=== PATIENT | male | born 1955 | race Caucasian/White ===

== ENCOUNTER 2025-04-15 22:18 | Inpatient (IN) | payer OTHER ==
[~2025-04-15] VITALS: Ht 167.6 cm; Wt 47.3 kg
[2025-04-15 22:47] LABS: BASOPHILS ABSOLUTE AUTO 0.03 K/mm3 (0.00-0.23); BASOPHILS PERCENT AUTO 0 % (0-2); EOSINOPHILS ABSOLUTE AUTO 0.12 K/mm3 (0.00-0.68); EOSINOPHILS PERCENT AUTO 1 % (0-6); Hematocrit 50.2 % (37.0-53.0); Hemoglobin 16.5 g/dL (13.5-17.5); IMMATURE GRAN ABSOLUTE AUTO 0.06 K/mm3 (0.00-0.10); IMMATURE GRAN PERCENT AUTO 1 % (0-1); LYMPHOCYTES ABSOLUTE AUTO 1.20 K/mm3 (0.84-5.20); LYMPHOCYTES PERCENT AUTO 10 % (21-46); MONOCYTES ABSOLUTE AUTO 0.77 K/mm3 (0.16-1.47); MONOCYTES PERCENT AUTO 6 % (4-13); Mean Corpuscular HGB Conc 32.9 g/dL (31.5-36.5); Mean Corpuscular Volume 86 fL (80-100); NEUTROPHILS ABSOLUTE AUTO 9.94 K/mm3 (1.96-9.15); NEUTROPHILS PERCENT AUTO 82 % (41-73); NRBC ABSOLUTE 0.00 K/mm3 (0.00-0.02); NRBC Auto 0.0 /100 WBC (0.0-0.2); Platelet Count 252 K/mm3 (150-400); RDW Coefficient Variation 15.1 % (11.7-14.2); RDW Standard Deviation 47.9 fL (35.1-46.3)
[2025-04-15 23:07] LABS: Alanine Aminotransfer (ALT/SGP 20.0 U/L (12-78); Albumin, Blood 4.2 g/dL (3.4-5.0); Albumin/Globulin Ratio 1.2 (0.8-1.8); Anion Gap 12.0 mmol/L (3-11); Aspartate Aminotrans (AST/SGOT 18.0 U/L (12-37); Bilirubin, Total 0.6 mg/dL (0.1-1.0); Blood Urea Nitrogen 13.0 mg/dL (8-24); CO2, Blood 24.0 mmol/L (21-32); Calcium, Blood 9.8 mg/dL (8.5-10.1); Chloride, Blood 108.0 mmol/L (98-108); Creatinine, Blood 0.73 mg/dL (0.60-1.20); Globulin, Blood 3.4 g/dL (2.2-4.0); Glucose, Blood 131.0 mg/dL (70-99); Magnesium, Blood 2.5 mg/dL (1.6-2.4); Potassium, Blood 3.7 mmol/L (3.5-5.5); Sodium, Blood 140.0 mmol/L (136-145); Total Protein, Blood 7.6 g/dL (6.4-8.2)
[2025-04-15 23:54] LABS: pH Blood Venous 7.54 (7.34-7.37)
[2025-04-16] MEDS ORDERED: Lidocaine 2% Jelly Uro-Jet TOP ONE (01:45)
[2025-04-16 01:52] LABS: Source, Urine Clean Catch
[2025-04-16] MEDS ORDERED: LORazepam 2 MG/ML 1ML Injection ONE (01:52)
[2025-04-16 02:25] LABS: Bilirubin, Urine Neg (Neg); Glucose Qualitative, Urine Neg (Neg); Ketones, Urine 3+ (Neg); Leukocyte Esterase, Urine Neg (Neg); Protein, Urine 1+ (Neg); Specific Gravity, Urine 1.015 (1.003-1.022); Urobilinogen, Urine NORM (Normal)
[2025-04-16 02:32] LABS: Color, Urine Yellow (P-Yellow)
[2025-04-16] MEDS ORDERED: LORazepam 2 MG/ML 1ML Injection IV ONE (02:50)
[2025-04-16] MEDS ORDERED: FentaNYL Citrate 50 MCG/ML 2 ML Injection IV PRN (02:55)
[2025-04-16] MEDS ORDERED: Ondansetron HCl 2 MG / ML 2ML Vial IV PRN (02:55)
[2025-04-16] MEDS ORDERED: NS 1,000 ML IV SCH (02:55)
[2025-04-16] MEDS ORDERED: FLU VACC TS2025(65UP)/MF59C/PF 45 MCG/0.5 ML SYRINGE IM SCH (02:55)
[2025-04-16] MEDS ORDERED: Ipratropium/Albuterol SulF 2.5-0.5MG/3 ML Amp INH PRN (03:30)
[2025-04-16 03:48] VITALS: BP 143/81
[2025-04-16] MEDS ORDERED: Metoclopramide HCl 5MG / ML 2ML Vial IV PRN (04:25)
--- NOTE | 2025-04-16 04:29 | NUR ---
ER ADMIT NOTE: PATIENT ARRIVED TO FLOOR FROM ED AFTER RECEIVING REPORT FROM ER NURSE, ALICE. PT ACCOMPANIED BY , EDWINA. NS STARTED @ 100mL/hr x1L. NGT TO LOW-INTERMITTENT SUCTION IN RIGHT NARE; CONFIRMED c XR. GROGGY, BUT A&Ox4. PT AND ORIENTED TO ROOM AND CALL LIGHT SYSTEM. MED REC COMPLETED. DIET ORDER NPO; WILL NEED MINCED AND MOIST ONCE RETURNS TO PO INTAKE. ADMISSION ASSESSMENT COMPLETED. BED IN LOWEST POSITION. CALL LIGHT WITHIN REACH. ACUTE NEEDS MET. DR THOMPSON TO BEDSIDE. Hx COLLECTED FROM . GOING HOME; WILL BE BACK IN AM.
[2025-04-16 04:41] LABS: BASOPHILS ABSOLUTE AUTO 0.03 K/mm3 (0.00-0.23); BASOPHILS PERCENT AUTO 0 % (0-2); EOSINOPHILS ABSOLUTE AUTO 0.01 K/mm3 (0.00-0.68); EOSINOPHILS PERCENT AUTO 0 % (0-6); Hematocrit 48.5 % (37.0-53.0); Hemoglobin 16.3 g/dL (13.5-17.5); IMMATURE GRAN ABSOLUTE AUTO 0.06 K/mm3 (0.00-0.10); IMMATURE GRAN PERCENT AUTO 1 % (0-1); LYMPHOCYTES ABSOLUTE AUTO 0.78 K/mm3 (0.84-5.20); LYMPHOCYTES PERCENT AUTO 7 % (21-46); MONOCYTES ABSOLUTE AUTO 0.45 K/mm3 (0.16-1.47); MONOCYTES PERCENT AUTO 4 % (4-13); Mean Corpuscular HGB Conc 33.6 g/dL (31.5-36.5); Mean Corpuscular Volume 86 fL (80-100); NEUTROPHILS ABSOLUTE AUTO 10.06 K/mm3 (1.96-9.15); NEUTROPHILS PERCENT AUTO 88 % (41-73); NRBC ABSOLUTE 0.00 K/mm3 (0.00-0.02); NRBC Auto 0.0 /100 WBC (0.0-0.2); RDW Coefficient Variation 16.8 % (11.7-14.2); RDW Standard Deviation 47.8 fL (35.1-46.3)
[2025-04-16 05:47] LABS: Platelet Count 246 K/mm3 (150-400)
--- NOTE | 2025-04-16 06:24 | NUR ---
END OF SHIFT SUMMARY: A&Ox4, THOUGH GROGGY. PLEASANT AND COOPERATIVE WITH CARE. ABLE TO ADVOCATE NEEDS EFFECTIVELY. VSS. TELE NSR @ 85bpm. BREATHING EVEN AND UNLABORED c RA. CONTINENT OF BOWEL AND BLADDER; LBM 04/15/25. NPO. Hx BARIUM SWALLOW c MINCED AND MOIST DIET ORDERS D/T EDENTULOUS. NGT RIGHT NARE TO LOW, INTERMITTENT SUCTION. INDEPENDENT c AMBULATION @ BASELINE; HAS NOT BEEN UP SINCE ADMIT. DR PATE CONSULTING. , EDWINA, WILL BE BACK IN LATER TODAY. BED IN LOWEST POSITION, CALL LIGHT WITHIN REACH, ALL NEEDS MET. REPORT TO ONCOMING NURSE.
[2025-04-16 06:25] LABS: Alanine Aminotransfer (ALT/SGP 18.0 U/L (12-78); Albumin, Blood 3.7 g/dL (3.4-5.0); Albumin/Globulin Ratio 1.1 (0.8-1.8); Anion Gap 9.0 mmol/L (3-11); Aspartate Aminotrans (AST/SGOT 19.0 U/L (12-37); Bilirubin, Total 0.6 mg/dL (0.1-1.0); Blood Urea Nitrogen 12.0 mg/dL (8-24); CO2, Blood 26.0 mmol/L (21-32); Calcium, Blood 9.0 mg/dL (8.5-10.1); Chloride, Blood 110.0 mmol/L (98-108); Creatinine, Blood 0.81 mg/dL (0.60-1.20); Globulin, Blood 3.3 g/dL (2.2-4.0); Glucose, Blood 131.0 mg/dL (70-99); Potassium, Blood 4.0 mmol/L (3.5-5.5); Sodium, Blood 141.0 mmol/L (136-145); Total Protein, Blood 7.0 g/dL (6.4-8.2)
[2025-04-16 08:08] VITALS: BP 143/85
[2025-04-16 12:13] VITALS: BP 145/84
[2025-04-16 16:09] VITALS: BP 155/90
--- NOTE | 2025-04-16 16:52 | NUR ---
SHIFT SUMMARY; PT A/OX4 AND INDEPENDENT TO THE RESTROOM. BOWEL TONES SOUND HYPERACTIVE THIS AM. AT APPROX. 1115, PT TAKEN TO IMAGING VIA WHEELCHAIR AND RETURNED TO ROOM AT APPROX. 1140. PT BECAME NAUSEATED AFTER RETURNING TO ROOM AND WAS MEDICATED PER EMAR. PT HAD SECOND IMAGING AT 1330 AND RETURNED TO ROOM. PT HAS HAD 4 WATERY BOWEL MOVEMENTS SINCE RETURNING TO ROOM. NG TUBE D/C'D PER DR. COOPER. NG TUBE REMOVED FROM PT. PT TOLERATED WELL. PT EXPRESSES DESIRE TO RETURN HOME. CALL PLACED TO DR. COOPER AND DR. VERDIN AND FINAL DESICION TO DISCHARGE PT HOME. BED IN LOW POSITION. CALL LIGHT WITHIN REACH. VSS.
--- NOTE | 2025-04-16 17:59 | NUR ---
DISCHARGE NOTE; DISCHARGE EDUCATION AND PACKET DISCUSSED WITH PT AND BY THIS RN. IV AND TELE REMOVED. PT DRESSED W/ HIS 'S ASSISTANCE. PT LEFT ROOM AND SURGICAL FLOOR IN WHEELCHAIR ACCOMPANIED WITH PIPED POCKET MACHINE OPERATOR IN STABLE CONDITION.
== END 2025-04-16 17:21 | disposition home or self-care (01) | DRG 389 ==
LOC: ER 22:18 → SURS 04-16 02:17
PROVIDERS: Emergency Medicine; ADMIT Internal Medicine
PROC: 0D9670Z Drainage of Stomach with Drainage Device, Via Natural or Artificial Opening (ICD-10-PCS; principal; 2025-04-16)
DX: K56.609 Unspecified intestinal obstruction, unspecified as to partial versus complete obstruction (principal); E87.3 Alkalosis; R64 Cachexia; Z68.1 Body mass index [BMI] 19.9 or less, adult; J44.9 Chronic obstructive pulmonary disease, unspecified; I50.9 Heart failure, unspecified; Z66 Do not resuscitate; Z85.46 Personal history of malignant neoplasm of prostate; Z87.891 Personal history of nicotine dependence
CPT/HCPCS: 36415; 71045; 74177; 74250; 80053; 82803; 83605; 83735; 83880; 84484; 85025; 85049; 93005; 93010; J2060; J2405; J7030; Q9967